=== PATIENT | male | born 1965 | race Caucasian/White ===

== ENCOUNTER 2019-09-07 10:44 | Inpatient (IN) | payer MEDICAID, OTHER ==
[~2019-09-07] VITALS: Ht 170.2 cm; Wt 66.0 kg
[2019-09-07] MEDS ORDERED: HYDROcodone/acetaminophen 10/325mg tab PO STA (10:47)
[2019-09-07] MEDS ORDERED: morphine 4 MG/ML inj SYRINge ONE (10:49)
[2019-09-07] MEDS ORDERED: morphine 4 MG/ML inj SYRINge IV ONE ×4 (10:50→12:10)
[2019-09-07] MEDS ORDERED: etomidate 2mg/ml inj. IV ONE (11:00)
[2019-09-07] MEDS ORDERED: normal saline 1000ml 1,000 ML IV SCH (11:03)
[2019-09-07] MEDS ORDERED: LORazepam 2 mg/ml vial IV ONE (11:15)
[2019-09-07] MEDS ORDERED: morphine 2 MG/ML inj. syringe IV ONE (11:15)
[2019-09-07] MEDS: normal saline 1000ml 1,000 ML IV SCH ×2 (12:19→22:33)
[2019-09-07] MEDS ORDERED: magnesium Cl slow-release 64mg tablet PO PRN (12:20)
[2019-09-07] MEDS ORDERED: HYDROcodone/acetaminophen 5mg/325mg tablet PO PRN (12:20)
[2019-09-07] MEDS ORDERED: magnesium 4gm in 100ml NS 100 ML IV PRN (12:20)
[2019-09-07] MEDS ORDERED: bisacodyl 10mg suppository rectal RC PRN (12:20)
[2019-09-07] MEDS ORDERED: acetaminophen 325mg tablet PO PRN (12:20)
[2019-09-07] MEDS ORDERED: potassium CL 10mEq/100ml bag 100 ML IV PRN ×2 (12:20)
[2019-09-07] MEDS ORDERED: potassium Cl 20 mEq SR tablet PO PRN (12:20)
[2019-09-07] MEDS ORDERED: HYDROmorphone inj. 0.5 MG/0.5 ML DISP.SYRIN IV PRN (12:20)
[2019-09-07] MEDS ORDERED: magnesium 2GM in 50ml NS 50 ML IV PRN (12:20)
[2019-09-07] MEDS ORDERED: acetaminophen 650mg rectal suppository RC PRN (12:20)
[2019-09-07 12:27] LABS: BASOPHILS # (AUTO) 0.1 X10'3 (0-0.2); BASOPHILS % (AUTO) 0.4 % (0-1); EOSINOPHILS # (AUTO) 0.1 X10'3 (0-0.9); EOSINOPHILS % (AUTO) 0.8 % (0-6); HEMATOCRIT 43.4 % (42.0-52.0); LYMPHOCYTES # (AUTO) 1.6 X10'3 (1.1-4.8); LYMPHOCYTES % (AUTO) 13.2 % (21-51); MEAN CORPUSCULAR HEMOGLOBIN 34.5 PG (27.0-31.0); MEAN CORPUSCULAR HGB CONC 34.6 g/dL (33.0-36.5); MEAN CORPUSCULAR VOLUME 99.7 FL (78-98); MEAN PLATELET VOLUME 9.5 FL (7.4-10.4); MONOCYTES # (AUTO) 0.6 X10'3 (0-0.9); MONOCYTES % (AUTO) 4.9 % (2-12); NEUTROPHILS # (AUTO) 9.6 X10'3 (1.8-7.7); NEUTROPHILS % (AUTO) 80.7 % (42-75); PLATELET COUNT 176 X10'3 (140-440); RED BLOOD COUNT 4.35 X10'6 (4.70-6.10); RED CELL DISTRIBUTION WIDTH 12.9 % (11.5-14.5); WHITE BLOOD COUNT 11.9 X10'3 (4.5-11.0)
--- NOTE | 2019-09-07 12:30 | NUR ---
FRIEND/BOSS/NEIGHBOR CJ NEO [phone] TOOK PATIENT'S ONE BOOT BELT GLASSES AND CLOTHES AND PILLOW HOME
--- NOTE | 2019-09-07 12:32 | NUR ---
AT 1050, 6MG MS ORDERED, ONLY 4MG GIVEN
[2019-09-07 12:35] LABS: ALANINE AMINOTRANSFERASE 56 U/L (12-78); ALBUMIN 3.9 G/DL (3.4-5.0); ALBUMIN/GLOBULIN RATIO 1.2 (1.1-1.5); ALKALINE PHOSPHATASE 80 IU/L (46-116); ANION GAP 8 (8-16); ASPARTATE AMINO TRANSFERASE 27 U/L (10-37); BLOOD UREA NITROGEN 14 MG/DL (7-18); BUN/CREATININE RATIO 12.4 (5.4-32.0); CALCIUM 8.7 MG/DL (8.5-10.1); CHLORIDE 103 MMOL/L (99-107); CREATININE 1.13 MG/DL (0.60-1.10); GLUCOSE 126 MG/DL (70-104); POTASSIUM 3.3 MMOL/L (3.5-5.1); SODIUM 137 MMOL/L (135-145); TOTAL CARBON DIOXIDE 26.4 MMOL/L (24-32); TOTAL PROTEIN 7.1 G/DL (6.4-8.2); eGFR 68 ML/MIN
[2019-09-07] MEDS: ondansetron/PF 4mg/2ml inj IV PRN ×2 (12:38→22:44)
[2019-09-07 13:56] LABS: CLARITY,URINE CLEAR (Clear); COLOR,URINE YELLOW (Yellow); GLUCOSE, URINE NEGATIVE (Neg); KETONES,URINE NEGATIVE (Neg); NITRITES, URINE NEGATIVE (Neg); OCCULT BLOOD,URINE NEGATIVE (Neg); PROTEIN,URINE NEGATIVE (Neg)
[2019-09-07 13:57] LABS: LEUKOCYTE ESTERASE ,URINE NEGATIVE (Neg); UROBILINOGEN,URINE 0.2 E.U/dL (0.2-1.0)
[2019-09-07 14:00] LABS: UA COLLECTION TYPE URINAL
[2019-09-07] MEDS ORDERED: ST JOHNS WORT PO (14:00)
[2019-09-07] MEDS ORDERED: OMEP-297 PO (14:00)
--- NOTE | 2019-09-07 14:01 | NUR ---
SECOND ATTEMPT AT CALLING SELWYN PEREZ
--- NOTE | 2019-09-07 14:03 | NUR ---
LAST KNOWN PO INTAKE WAS EGG ICH 729
--- NOTE | 2019-09-07 14:10 | NUR ---
Received report from MARÍA Streeter RN, patient coming up soon. Called OR to see if patient was to be an add on for tonight or if am surgery is planned instead.
--- NOTE | 2019-09-07 14:15 | NUR ---
DR FIERRO ADMITTING, DR KAELA DUGGAN, OTHRO CONSULT
[2019-09-07 14:25] VITALS: BP 109/79
--- NOTE | 2019-09-07 14:25 | NUR ---
Patient arrived to room 4022 B at this time. VSS.
[2019-09-07] MEDS: metoclopramide 5 mg/ml inj IV PRN (16:47)
[2019-09-07] MEDS: HYDROmorphone 1 mg/ml syringe IV PRN (16:51)
--- NOTE | 2019-09-07 17:15 | NUR ---
Paged hospitalist, "Roz [phone]- Please call re: [phone] Jeramy Torres."
[2019-09-07 18:00] VITALS: BP 112/65
--- NOTE | 2019-09-07 18:17 | NUR ---
Problems reprioritized. Patient report given, questions answered & plan of care reviewed with Terell PEREZ.
[2019-09-07] MEDS: K and/or MAG REPLACEMENT MC SCH (20:00)
[2019-09-07] MEDS: docusate sod 100mg capsule PO SCH (20:00)
[2019-09-07 22:00] VITALS: BP 146/82
[2019-09-07] MEDS: potassium Cl 20 mEq SR tablet PO PRN (22:33)
[2019-09-07] MEDS: HYDROcodone/acetaminophen 10/325mg tab PO PRN (22:34)
[2019-09-08] VITALS (17 sets, daily range): BP systolic 103–164; BP diastolic 65–99
[2019-09-08] MEDS: temazepam 15mg capsule PO PRN ×2 (01:16→21:44)
[2019-09-08] MEDS: potassium Cl 20 mEq SR tablet PO PRN ×2 (03:01→17:19)
[2019-09-08] MEDS: HYDROcodone/acetaminophen 10/325mg tab PO PRN ×3 (03:02→14:51)
--- NOTE | 2019-09-08 03:47 | NUR ---
Patient in room ORTHO 4022. I have received report from Roz PEREZ and had the opportunity to ask questions and assume patient care.
[2019-09-08] MEDS ORDERED: HYDROmorphone inj. 0.5 MG/0.5 ML DISP.SYRIN IV ONE (04:20)
[2019-09-08] MEDS: HYDROmorphone 1 mg/ml syringe IV PRN ×4 (05:22→21:23)
[2019-09-08 06:27] LABS: BASOPHILS % (AUTO) 0.2 % (0-1); EOSINOPHILS % (AUTO) 0.3 % (0-6); HEMATOCRIT 38.4 % (42.0-52.0); HEMOGLOBIN 13.4 g/dl (14.0-17.9); LYMPHOCYTES # (AUTO) 1.2 X10'3 (1.1-4.8); LYMPHOCYTES % (AUTO) 14.3 % (21-51); MEAN CORPUSCULAR HEMOGLOBIN 35.1 PG (27.0-31.0); MEAN CORPUSCULAR HGB CONC 34.9 g/dL (33.0-36.5); MEAN CORPUSCULAR VOLUME 100.4 FL (78-98); MEAN PLATELET VOLUME 9.4 FL (7.4-10.4); MONOCYTES # (AUTO) 0.7 X10'3 (0-0.9); MONOCYTES % (AUTO) 7.8 % (2-12); NEUTROPHILS # (AUTO) 6.7 X10'3 (1.8-7.7); NEUTROPHILS % (AUTO) 77.4 % (42-75); PLATELET COUNT 136 X10'3 (140-440); RED BLOOD COUNT 3.82 X10'6 (4.70-6.10); WHITE BLOOD COUNT 8.6 X10'3 (4.5-11.0)
[2019-09-08 06:50] LABS: ALANINE AMINOTRANSFERASE 44 U/L (12-78); ALBUMIN 3.5 G/DL (3.4-5.0); ALBUMIN/GLOBULIN RATIO 1.2 (1.1-1.5); ALKALINE PHOSPHATASE 81 IU/L (46-116); ANION GAP 7 (8-16); ASPARTATE AMINO TRANSFERASE 23 U/L (10-37); BILIRUBIN,TOTAL 1.3 MG/DL (0.1-1.0); BLOOD UREA NITROGEN 14 MG/DL (7-18); BUN/CREATININE RATIO 14.1 (5.4-32.0); CALCIUM 8.2 MG/DL (8.5-10.1); CHLORIDE 104 MMOL/L (99-107); CREATININE 0.99 MG/DL (0.60-1.10); GLUCOSE 116 MG/DL (70-104); MAGNESIUM 1.9 MG/DL (1.5-2.4); POTASSIUM 3.4 MMOL/L (3.5-5.1); SODIUM 139 MMOL/L (135-145); TOTAL PROTEIN 6.5 G/DL (6.4-8.2); eGFR 79 ML/MIN
[2019-09-08] MEDS: pantoprazole 40mg Tablet.DR PO SCH (07:13)
[2019-09-08] MEDS: enoxaparin 40mg/0.4ml syringe SUBCUT SCH (08:00)
[2019-09-08] MEDS: K and/or MAG REPLACEMENT MC SCH ×2 (08:00→20:00)
[2019-09-08] MEDS: docusate sod 100mg capsule PO SCH ×2 (08:00→19:41)
[2019-09-08] MEDS ORDERED: fentaNYL/PF 50MCG/1 ML 2ML syringe ONE (08:04)
[2019-09-08] MEDS ORDERED: MIDAZolam 1mg/ml 10ml vial ONE (08:04)
[2019-09-08] MEDS ORDERED: ceFAZolin 1000mg inj ONE ×2 (08:55)
[2019-09-08] MEDS ORDERED: dexamethasone sod phosphate 4mg/ml inj. ONE (09:10)
[2019-09-08] MEDS ORDERED: ringers solution, lacted 1,000 ML IV SCH (09:12)
[2019-09-08] MEDS ORDERED: ondansetron/PF 4mg/2ml inj IV PRN (09:15)
[2019-09-08] MEDS ORDERED: meperidine/PF 25mg/ml syringe IV PRN ×3 (09:15)
[2019-09-08] MEDS ORDERED: morphine 4 MG/ML inj SYRINge IV PRN ×2 (09:15)
[2019-09-08] MEDS ORDERED: proCHLORperazine 10 MG/2 ml inj IV PRN (09:15)
--- NOTE | 2019-09-08 09:15 | NUR ---
ADMITTED TO PACU FROM OR ACCOMPANIED BY ANESTHESIA. INTIAL PHYSICAL ASSESSMENT DONE AND RECORDED. REPORT RECEIVED FROM ANESTHESIA.
--- NOTE | 2019-09-08 10:01 | NUR ---
Patient in room ORTHO 4022B. I have received report from BELEN BURGER RN, PT SANDRA, A&O, and had the opportunity to ask questions and assume patient care.
--- NOTE | 2019-09-08 10:10 | NUR ---
PACU DISCHARGE CRITERIA MET, REPORT GIVEN TO FLOOR. DENIES PAIN OR DISCOMFORT, TRANSFERRED TO ROOM IN STABLE GOOD CONDITION.
[2019-09-08] MEDS: mag hydrox/Alum hydrox/simeth 30ml oral suspension PO PRN ×2 (11:27→23:40)
[2019-09-08] MEDS: normal saline 1000ml 1,000 ML IV SCH ×3 (11:29→23:41)
[2019-09-08] MEDS: ondansetron/PF 4mg/2ml inj IV PRN (14:05)
[2019-09-08] MEDS: metoclopramide 5 mg/ml inj IV PRN (17:12)
[2019-09-08] MEDS: cefazolin/dext.iso 2gm/100ml 100 ML IV SCH ×2 (17:29→23:41)
--- NOTE | 2019-09-08 18:10 | NUR ---
Patient in room ORTHO 4022. I have received report from ANA Alvarado and had the opportunity to ask questions and assume patient care.
[2019-09-08] MEDS: diphenhydrAMINE 25mg capsule PO PRN (19:31)
[2019-09-08] MEDS ORDERED: ketorolac trometh. 30mg/ml inj. IV SCH (20:00)
[2019-09-09 01:50] VITALS: BP 130/76
[2019-09-09] MEDS: potassium Cl 20 mEq SR tablet PO PRN (03:28)
[2019-09-09] MEDS: HYDROmorphone 1 mg/ml syringe IV PRN ×5 (03:30→21:57)
[2019-09-09 05:50] VITALS: BP 122/80
--- NOTE | 2019-09-09 06:30 | NUR ---
Patient in room ORTHO 4022. I have received report from Katlyn PEREZ and had the opportunity to ask questions and assume patient care.
[2019-09-09 06:33] LABS: ALANINE AMINOTRANSFERASE 36 U/L (12-78); ALBUMIN 3.5 G/DL (3.4-5.0); ALKALINE PHOSPHATASE 72 IU/L (46-116); ANION GAP 6 (8-16); ASPARTATE AMINO TRANSFERASE 29 U/L (10-37); BILIRUBIN,TOTAL 1.1 MG/DL (0.1-1.0); BLOOD UREA NITROGEN 11 MG/DL (7-18); BUN/CREATININE RATIO 10.4 (5.4-32.0); CALCIUM 8.7 MG/DL (8.5-10.1); CHLORIDE 105 MMOL/L (99-107); CREATININE 1.06 MG/DL (0.60-1.10); GLUCOSE 124 MG/DL (70-104); MAGNESIUM 2.3 MG/DL (1.5-2.4); POTASSIUM 4.1 MMOL/L (3.5-5.1); SODIUM 140 MMOL/L (135-145); TOTAL CARBON DIOXIDE 28.9 MMOL/L (24-32); TOTAL PROTEIN 6.9 G/DL (6.4-8.2); eGFR 73 ML/MIN
[2019-09-09 06:35] LABS: BASOPHILS % (AUTO) 0.1 % (0-1); EOSINOPHILS % (AUTO) 0.2 % (0-6); HEMATOCRIT 36.4 % (42.0-52.0); HEMOGLOBIN 12.7 g/dl (14.0-17.9); LYMPHOCYTES % (AUTO) 9.1 % (21-51); MEAN CORPUSCULAR HEMOGLOBIN 35.3 PG (27.0-31.0); MEAN CORPUSCULAR HGB CONC 34.9 g/dL (33.0-36.5); MEAN CORPUSCULAR VOLUME 101.2 FL (78-98); MEAN PLATELET VOLUME 9.7 FL (7.4-10.4); MONOCYTES # (AUTO) 0.7 X10'3 (0-0.9); MONOCYTES % (AUTO) 6.8 % (2-12); NEUTROPHILS # (AUTO) 8.8 X10'3 (1.8-7.7); NEUTROPHILS % (AUTO) 83.8 % (42-75); PLATELET COUNT 133 X10'3 (140-440); RED BLOOD COUNT 3.59 X10'6 (4.70-6.10); RED CELL DISTRIBUTION WIDTH 13.1 % (11.5-14.5); WHITE BLOOD COUNT 10.5 X10'3 (4.5-11.0)
--- NOTE | 2019-09-09 06:52 | NUR ---
Problems reprioritized. Patient report given, questions answered & plan of care reviewed with ANA Arango.
[2019-09-09] MEDS: K and/or MAG REPLACEMENT MC SCH ×2 (08:00→20:00)
[2019-09-09] MEDS: ketorolac trometh. 30mg/ml inj. IV PRN ×2 (08:06→15:43)
[2019-09-09] MEDS: docusate sod 100mg capsule PO SCH ×2 (08:06→22:06)
[2019-09-09] MEDS: pantoprazole 40mg Tablet.DR PO SCH (08:06)
[2019-09-09] MEDS: enoxaparin 40mg/0.4ml syringe SUBCUT SCH (08:07)
[2019-09-09] MEDS ORDERED: normal saline 1000ml 1,000 ML IV SCH ×2 (09:00→16:55)
[2019-09-09] MEDS: diphenhydrAMINE 25mg capsule PO PRN ×3 (09:16→23:20)
[2019-09-09] MEDS: ondansetron/PF 4mg/2ml inj IV PRN ×2 (09:16→15:56)
[2019-09-09 09:50] VITALS: BP 126/77
[2019-09-09] MEDS: HYDROcodone/acetaminophen 10/325mg tab PO PRN ×3 (11:05→17:44)
[2019-09-09 13:50] VITALS: BP 136/82
[2019-09-09 18:00] VITALS: BP 162/85
--- NOTE | 2019-09-09 18:30 | NUR ---
Problems reprioritized. Patient report given, questions answered & plan of care reviewed with Tori PEREZ.
[2019-09-09 22:00] VITALS: BP 150/70
--- NOTE | 2019-09-09 22:51 | NUR ---
RT LOWER EXTERNAL FIXATOR SITE DRAINING SANGUINOUS DRAINAGE,MARKED.INFORMED DR. DUGGAN PT ON TORADOL,ADVISED TO CONTINUE TORADOL.
[2019-09-10] MEDS: HYDROcodone/acetaminophen 10/325mg tab PO PRN ×2 (01:17→08:08)
[2019-09-10] MEDS: ketorolac trometh. 30mg/ml inj. IV PRN ×2 (02:34→09:26)
[2019-09-10] MEDS: HYDROmorphone 1 mg/ml syringe IV PRN ×4 (04:46→22:32)
[2019-09-10 05:57] LABS: BASOPHILS # (AUTO) 0.1 X10'3 (0-0.2); BASOPHILS % (AUTO) 0.7 % (0-1); EOSINOPHILS # (AUTO) 0.1 X10'3 (0-0.9); EOSINOPHILS % (AUTO) 1.9 % (0-6); HEMATOCRIT 36.4 % (42.0-52.0); HEMOGLOBIN 12.7 g/dl (14.0-17.9); LYMPHOCYTES # (AUTO) 1.4 X10'3 (1.1-4.8); LYMPHOCYTES % (AUTO) 19.4 % (21-51); MEAN CORPUSCULAR HEMOGLOBIN 35.3 PG (27.0-31.0); MEAN CORPUSCULAR HGB CONC 34.8 g/dL (33.0-36.5); MEAN CORPUSCULAR VOLUME 101.4 FL (78-98); MEAN PLATELET VOLUME 9.2 FL (7.4-10.4); MONOCYTES # (AUTO) 0.5 X10'3 (0-0.9); MONOCYTES % (AUTO) 7.4 % (2-12); NEUTROPHILS # (AUTO) 5.2 X10'3 (1.8-7.7); NEUTROPHILS % (AUTO) 70.6 % (42-75); PLATELET COUNT 128 X10'3 (140-440); RED BLOOD COUNT 3.59 X10'6 (4.70-6.10); RED CELL DISTRIBUTION WIDTH 12.9 % (11.5-14.5); WHITE BLOOD COUNT 7.4 X10'3 (4.5-11.0)
[2019-09-10 06:00] VITALS: BP 169/83
[2019-09-10 06:23] LABS: ALANINE AMINOTRANSFERASE 41 U/L (12-78); ALBUMIN 3.3 G/DL (3.4-5.0); ALBUMIN/GLOBULIN RATIO 0.9 (1.1-1.5); ALKALINE PHOSPHATASE 72 IU/L (46-116); ANION GAP 9 (8-16); ASPARTATE AMINO TRANSFERASE 44 U/L (10-37); BILIRUBIN,TOTAL 1.4 MG/DL (0.1-1.0); BLOOD UREA NITROGEN 15 MG/DL (7-18); BUN/CREATININE RATIO 13.8 (5.4-32.0); CALCIUM 8.6 MG/DL (8.5-10.1); CHLORIDE 103 MMOL/L (99-107); CREATININE 1.09 MG/DL (0.60-1.10); GLUCOSE 97 MG/DL (70-104); POTASSIUM 3.8 MMOL/L (3.5-5.1); SODIUM 139 MMOL/L (135-145); TOTAL PROTEIN 6.9 G/DL (6.4-8.2); eGFR 71 ML/MIN
[2019-09-10] MEDS: K and/or MAG REPLACEMENT MC SCH ×2 (07:09→20:00)
[2019-09-10] MEDS: docusate sod 100mg capsule PO SCH ×2 (08:08→19:49)
[2019-09-10] MEDS: pantoprazole 40mg Tablet.DR PO SCH (08:08)
[2019-09-10] MEDS: enoxaparin 40mg/0.4ml syringe SUBCUT SCH (08:10)
[2019-09-10 10:00] VITALS: BP 148/71
[2019-09-10] MEDS: ondansetron/PF 4mg/2ml inj IV PRN (11:34)
[2019-09-10] MEDS ORDERED: HYDROcodone/acetaminophen 10/325mg tab PO PRN (11:40)
[2019-09-10] MEDS: metoclopramide 5 mg/ml inj IV PRN (14:05)
[2019-09-10] MEDS ORDERED: oxyCODONE/APAP 10/325mg tablet PO PRN (17:25)
[2019-09-10] MEDS: oxyCODONE/APAP 10/325mg tablet PO PRN ×2 (17:42→18:38)
[2019-09-10 18:00] VITALS: BP 171/78
--- NOTE | 2019-09-10 18:00 | NUR ---
Patient in room ORTHO 4022. I have received report from Vickie PEREZ and had the opportunity to ask questions and assume patient care.
--- NOTE | 2019-09-10 18:20 | NUR ---
Received patient report from ANA Adams. Assumed patient care.
[2019-09-10] MEDS: diphenhydrAMINE 25mg capsule PO PRN (18:37)
[2019-09-10 22:00] VITALS: BP 136/53
[2019-09-11] MEDS: metoclopramide 5 mg/ml inj IV PRN (02:55)
[2019-09-11 05:58] LABS: ALANINE AMINOTRANSFERASE 64 U/L (12-78); ALBUMIN 3.4 G/DL (3.4-5.0); ALBUMIN/GLOBULIN RATIO 0.9 (1.1-1.5); ALKALINE PHOSPHATASE 95 IU/L (46-116); ANION GAP 4 (8-16); ASPARTATE AMINO TRANSFERASE 56 U/L (10-37); BILIRUBIN,TOTAL 1.3 MG/DL (0.1-1.0); BLOOD UREA NITROGEN 15 MG/DL (7-18); BUN/CREATININE RATIO 13.3 (5.4-32.0); CALCIUM 8.7 MG/DL (8.5-10.1); CHLORIDE 102 MMOL/L (99-107); CREATININE 1.13 MG/DL (0.60-1.10); GLUCOSE 118 MG/DL (70-104); MAGNESIUM 2.1 MG/DL (1.5-2.4); POTASSIUM 3.4 MMOL/L (3.5-5.1); SODIUM 138 MMOL/L (135-145); TOTAL CARBON DIOXIDE 31.6 MMOL/L (24-32); TOTAL PROTEIN 7.1 G/DL (6.4-8.2); eGFR 68 ML/MIN
[2019-09-11 06:00] VITALS: BP 143/94
[2019-09-11] MEDS: ketorolac trometh. 30mg/ml inj. IV PRN (06:10)
[2019-09-11] MEDS: HYDROmorphone 1 mg/ml syringe IV PRN (06:10)
[2019-09-11 06:11] LABS: BASOPHILS % (AUTO) 0.7 % (0-1); EOSINOPHILS # (AUTO) 0.2 X10'3 (0-0.9); EOSINOPHILS % (AUTO) 2.5 % (0-6); HEMATOCRIT 36.6 % (42.0-52.0); HEMOGLOBIN 12.8 g/dl (14.0-17.9); LYMPHOCYTES # (AUTO) 0.9 X10'3 (1.1-4.8); LYMPHOCYTES % (AUTO) 14.7 % (21-51); MEAN CORPUSCULAR VOLUME 100.1 FL (78-98); MEAN PLATELET VOLUME 9.2 FL (7.4-10.4); MONOCYTES # (AUTO) 0.4 X10'3 (0-0.9); MONOCYTES % (AUTO) 6.8 % (2-12); NEUTROPHILS # (AUTO) 4.8 X10'3 (1.8-7.7); NEUTROPHILS % (AUTO) 75.3 % (42-75); PLATELET COUNT 165 X10'3 (140-440); RED BLOOD COUNT 3.66 X10'6 (4.70-6.10); RED CELL DISTRIBUTION WIDTH 12.8 % (11.5-14.5); WHITE BLOOD COUNT 6.3 X10'3 (4.5-11.0)
--- NOTE | 2019-09-11 06:30 | NUR ---
Patient in room ORTHO 4022. I have received report from ANA George and had the opportunity to ask questions and assume patient care.
--- NOTE | 2019-09-11 06:48 | NUR ---
Problems reprioritized. Patient report given, questions answered & plan of care reviewed with Angie PEREZ.
[2019-09-11] MEDS ORDERED: potassium CL 10mEq/100ml bag 100 ML IV PRN (07:10)
[2019-09-11] MEDS ORDERED: potassium Cl 20 mEq SR tablet PO PRN (07:10)
[2019-09-11] MEDS ORDERED: magnesium Cl slow-release 64mg tablet PO PRN (07:10)
[2019-09-11] MEDS ORDERED: magnesium 4gm in 100ml NS 100 ML IV PRN (07:10)
[2019-09-11] MEDS: K and/or MAG REPLACEMENT MC SCH ×3 (08:00→19:24)
[2019-09-11] MEDS: ondansetron/PF 4mg/2ml inj IV PRN ×3 (08:24→20:03)
[2019-09-11] MEDS: pantoprazole 40mg Tablet.DR PO SCH (08:24)
[2019-09-11] MEDS: docusate sod 100mg capsule PO SCH ×2 (08:24→19:42)
[2019-09-11] MEDS: enoxaparin 40mg/0.4ml syringe SUBCUT SCH (08:25)
[2019-09-11] MEDS: potassium Cl 20 mEq SR tablet PO PRN ×3 (08:25→18:50)
[2019-09-11] MEDS: magnesium hydroxide 30ml (MOM) UD suspension PO PRN (09:47)
[2019-09-11 10:00] VITALS: BP 174/57
[2019-09-11] MEDS: diphenhydrAMINE 25mg capsule PO PRN ×2 (10:18→19:42)
[2019-09-11] MEDS: oxyCODONE/APAP 10/325mg tablet PO PRN ×4 (10:19→20:02)
[2019-09-11 18:00] VITALS: BP 147/72
--- NOTE | 2019-09-11 18:12 | NUR ---
Problems reprioritized. Patient report given, questions answered & plan of care reviewed with ANA Gurrola.
[2019-09-11 22:00] VITALS: BP 177/86
--- NOTE | 2019-09-12 05:52 | NUR ---
Pt was adamant he did not want to be woke up for 0600 vitals. Pt understood to use call light for any other needs.
--- NOTE | 2019-09-12 05:58 | NUR ---
Patient report given, questions answered and plan of care reviewed with ANA Guerra.
--- NOTE | 2019-09-12 06:00 | NUR ---
Patient refused 0600 vital signs.
[2019-09-12] MEDS: ondansetron/PF 4mg/2ml inj IV PRN ×2 (06:38→15:25)
[2019-09-12] MEDS: oxyCODONE/APAP 10/325mg tablet PO PRN ×2 (06:38→10:18)
[2019-09-12] MEDS: docusate sod 100mg capsule PO SCH ×2 (07:52→20:41)
[2019-09-12] MEDS: pantoprazole 40mg Tablet.DR PO SCH (07:52)
[2019-09-12] MEDS: enoxaparin 40mg/0.4ml syringe SUBCUT SCH (07:53)
[2019-09-12] MEDS ORDERED: hydrALAZINE 20mg/ml inj. IV PRN (07:55)
[2019-09-12] MEDS: K and/or MAG REPLACEMENT MC SCH ×3 (07:55→20:00)
[2019-09-12 08:37] LABS: BASOPHILS % (AUTO) 0.6 % (0-1); EOSINOPHILS # (AUTO) 0.1 X10'3 (0-0.9); EOSINOPHILS % (AUTO) 2.5 % (0-6); HEMATOCRIT 36.6 % (42.0-52.0); HEMOGLOBIN 12.9 g/dl (14.0-17.9); LYMPHOCYTES # (AUTO) 0.6 X10'3 (1.1-4.8); LYMPHOCYTES % (AUTO) 11.9 % (21-51); MEAN CORPUSCULAR HEMOGLOBIN 35.2 PG (27.0-31.0); MEAN CORPUSCULAR HGB CONC 35.2 g/dL (33.0-36.5); MEAN CORPUSCULAR VOLUME 99.7 FL (78-98); MEAN PLATELET VOLUME 8.8 FL (7.4-10.4); MONOCYTES # (AUTO) 0.3 X10'3 (0-0.9); MONOCYTES % (AUTO) 5.8 % (2-12); NEUTROPHILS # (AUTO) 3.7 X10'3 (1.8-7.7); NEUTROPHILS % (AUTO) 79.2 % (42-75); PLATELET COUNT 177 X10'3 (140-440); RED BLOOD COUNT 3.67 X10'6 (4.70-6.10); RED CELL DISTRIBUTION WIDTH 12.7 % (11.5-14.5); WHITE BLOOD COUNT 4.7 X10'3 (4.5-11.0)
[2019-09-12 08:53] LABS: ALANINE AMINOTRANSFERASE 132 U/L (12-78); ALBUMIN 3.5 G/DL (3.4-5.0); ALKALINE PHOSPHATASE 126 IU/L (46-116); ANION GAP 6 (8-16); ASPARTATE AMINO TRANSFERASE 125 U/L (10-37); BILIRUBIN,TOTAL 1.4 MG/DL (0.1-1.0); BLOOD UREA NITROGEN 12 MG/DL (7-18); CALCIUM 9.1 MG/DL (8.5-10.1); CHLORIDE 102 MMOL/L (99-107); GLUCOSE 135 MG/DL (70-104); MAGNESIUM 2.2 MG/DL (1.5-2.4); POTASSIUM 3.6 MMOL/L (3.5-5.1); SODIUM 138 MMOL/L (135-145); TOTAL CARBON DIOXIDE 30.4 MMOL/L (24-32); TOTAL PROTEIN 7.1 G/DL (6.4-8.2); eGFR 64 ML/MIN
[2019-09-12 10:00] VITALS: BP 137/63
[2019-09-12] MEDS: oxyCODONE IR 5mg (immed. release) tablet PO PRN ×3 (15:28→23:57)
[2019-09-12 18:00] VITALS: BP 135/90
--- NOTE | 2019-09-12 18:16 | NUR ---
Problems reprioritized. Patient report given, questions answered & plan of care reviewed with Clarissa PEREZ.
--- NOTE | 2019-09-12 18:31 | NUR ---
Patient in room ORTHO 4022. I have received report from ANA Guerra and had the opportunity to ask questions and assume patient care. Addendum: 09/12/19 at 1832 by Lizzie Smith RN Amended: Links added.
[2019-09-12] MEDS: metoclopramide 5 mg/ml inj IV PRN (19:33)
[2019-09-12] MEDS: morphine ER 15mg tablet PO SCH (20:41)
[2019-09-12 22:00] VITALS: BP 118/84
--- NOTE | 2019-09-12 23:47 | NUR ---
Problems reprioritized. Patient report given, questions answered & plan of care reviewed with ANA Soni. Addendum: 09/12/19 at 2347 by Lizzie Smith RN Amended: Links added.
[2019-09-12] MEDS: temazepam 15mg capsule PO PRN (23:57)
[2019-09-13] MEDS: oxyCODONE IR 5mg (immed. release) tablet PO PRN ×3 (05:35→13:15)
[2019-09-13] MEDS: metoclopramide 5 mg/ml inj IV PRN ×2 (05:36→13:16)
[2019-09-13 06:00] VITALS: BP 142/81
--- NOTE | 2019-09-13 06:25 | NUR ---
REPORT GIVEN TO ANA LOONEY.
--- NOTE | 2019-09-13 06:30 | NUR ---
RECEIVED REPORT FROM ANA RODRIGUEZ
[2019-09-13 06:31] LABS: BASOPHILS % (AUTO) 0.5 % (0-1); EOSINOPHILS # (AUTO) 0.2 X10'3 (0-0.9); EOSINOPHILS % (AUTO) 3.2 % (0-6); HEMATOCRIT 37.4 % (42.0-52.0); LYMPHOCYTES # (AUTO) 1.3 X10'3 (1.1-4.8); LYMPHOCYTES % (AUTO) 19.2 % (21-51); MEAN CORPUSCULAR HEMOGLOBIN 35.1 PG (27.0-31.0); MEAN CORPUSCULAR HGB CONC 34.9 g/dL (33.0-36.5); MEAN CORPUSCULAR VOLUME 100.5 FL (78-98); MEAN PLATELET VOLUME 8.3 FL (7.4-10.4); MONOCYTES # (AUTO) 0.7 X10'3 (0-0.9); MONOCYTES % (AUTO) 10.8 % (2-12); NEUTROPHILS # (AUTO) 4.5 X10'3 (1.8-7.7); NEUTROPHILS % (AUTO) 66.3 % (42-75); PLATELET COUNT 194 X10'3 (140-440); RED BLOOD COUNT 3.72 X10'6 (4.70-6.10); RED CELL DISTRIBUTION WIDTH 12.5 % (11.5-14.5); WHITE BLOOD COUNT 6.8 X10'3 (4.5-11.0)
[2019-09-13 06:56] LABS: ALANINE AMINOTRANSFERASE 190 U/L (12-78); ALBUMIN 3.5 G/DL (3.4-5.0); ALBUMIN/GLOBULIN RATIO 0.9 (1.1-1.5); ALKALINE PHOSPHATASE 150 IU/L (46-116); ANION GAP 7 (8-16); ASPARTATE AMINO TRANSFERASE 161 U/L (10-37); BILIRUBIN,TOTAL 1.4 MG/DL (0.1-1.0); BLOOD UREA NITROGEN 16 MG/DL (7-18); BUN/CREATININE RATIO 12.9 (5.4-32.0); CALCIUM 9.2 MG/DL (8.5-10.1); CHLORIDE 101 MMOL/L (99-107); CREATININE 1.24 MG/DL (0.60-1.10); GLUCOSE 107 MG/DL (70-104); MAGNESIUM 2.2 MG/DL (1.5-2.4); POTASSIUM 4.1 MMOL/L (3.5-5.1); SODIUM 138 MMOL/L (135-145); TOTAL CARBON DIOXIDE 30.5 MMOL/L (24-32); TOTAL PROTEIN 7.4 G/DL (6.4-8.2); eGFR 61 ML/MIN
[2019-09-13] MEDS: K and/or MAG REPLACEMENT MC SCH ×2 (07:38→20:00)
[2019-09-13] MEDS: pantoprazole 40mg Tablet.DR PO SCH (07:42)
[2019-09-13] MEDS: morphine ER 15mg tablet PO SCH ×2 (07:42→20:08)
[2019-09-13] MEDS: docusate sod 100mg capsule PO SCH ×2 (07:42→20:08)
[2019-09-13] MEDS: enoxaparin 40mg/0.4ml syringe SUBCUT SCH (07:43)
[2019-09-13 10:00] VITALS: BP 141/83
--- NOTE | 2019-09-13 14:25 | NUR ---
Initial: Pt admit s/p R tib/fib fx repair. Pt PO fluctuates roughly 50% avg regular diet not meeting healing needs. Pt seen by RD for written/verbal high protein diet ed w/ RD contact information provided. LBM 09/11. Pt reports currently nausea post-op and also kosher meals only w/ no caffeine. Dietary notified of pt preferences. Pt declines high protein food options and ensures w/ meals; reports drinks orgain protein at home. RD encouraged pt to bring in from outside in order to meet healing needs. Will continue to monitor. Rec: 1. continue regular diet 2. honor pt food preferences 3. bowel care as needed 4. wt per rx Addendum: 09/13/19 at [address] Amended: Links added.
[2019-09-13 18:00] VITALS: BP 131/79
--- NOTE | 2019-09-13 18:18 | NUR ---
gave report to ray clark
[2019-09-13] MEDS: ondansetron/PF 4mg/2ml inj IV PRN (19:13)
[2019-09-13] MEDS: acetaminophen 325mg tablet PO PRN (19:18)
[2019-09-13 22:00] VITALS: BP 164/78
[2019-09-14] MEDS: temazepam 15mg capsule PO PRN ×2 (01:28→22:58)
[2019-09-14] MEDS: acetaminophen 325mg tablet PO PRN ×2 (01:29→07:11)
[2019-09-14] MEDS: magnesium hydroxide 30ml (MOM) UD suspension PO PRN (05:28)
--- NOTE | 2019-09-14 06:08 | NUR ---
Problems reprioritized. Patient report given, questions answered & plan of care reviewed with ANA Bourne.
[2019-09-14 06:10] VITALS: BP 148/58
[2019-09-14 06:21] LABS: BASOPHILS % (AUTO) 0.7 % (0-1); EOSINOPHILS # (AUTO) 0.2 X10'3 (0-0.9); EOSINOPHILS % (AUTO) 3.6 % (0-6); HEMATOCRIT 38.6 % (42.0-52.0); HEMOGLOBIN 13.2 g/dl (14.0-17.9); LYMPHOCYTES # (AUTO) 1.2 X10'3 (1.1-4.8); LYMPHOCYTES % (AUTO) 19.2 % (21-51); MEAN CORPUSCULAR HGB CONC 34.3 g/dL (33.0-36.5); MEAN CORPUSCULAR VOLUME 99.3 FL (78-98); MEAN PLATELET VOLUME 8.3 FL (7.4-10.4); MONOCYTES # (AUTO) 0.7 X10'3 (0-0.9); MONOCYTES % (AUTO) 10.4 % (2-12); NEUTROPHILS # (AUTO) 4.2 X10'3 (1.8-7.7); NEUTROPHILS % (AUTO) 66.1 % (42-75); PLATELET COUNT 209 X10'3 (140-440); RED BLOOD COUNT 3.89 X10'6 (4.70-6.10); RED CELL DISTRIBUTION WIDTH 12.8 % (11.5-14.5); WHITE BLOOD COUNT 6.3 X10'3 (4.5-11.0)
[2019-09-14 06:39] LABS: ALANINE AMINOTRANSFERASE 219 U/L (12-78); ALBUMIN 3.3 G/DL (3.4-5.0); ALBUMIN/GLOBULIN RATIO 0.8 (1.1-1.5); ALKALINE PHOSPHATASE 158 IU/L (46-116); ANION GAP 4 (8-16); ASPARTATE AMINO TRANSFERASE 152 U/L (10-37); BILIRUBIN,TOTAL 1.4 MG/DL (0.1-1.0); BLOOD UREA NITROGEN 16 MG/DL (7-18); BUN/CREATININE RATIO 13.2 (5.4-32.0); CALCIUM 9.2 MG/DL (8.5-10.1); CHLORIDE 101 MMOL/L (99-107); CREATININE 1.21 MG/DL (0.60-1.10); GLUCOSE 105 MG/DL (70-104); MAGNESIUM 2.2 MG/DL (1.5-2.4); POTASSIUM 3.9 MMOL/L (3.5-5.1); SODIUM 137 MMOL/L (135-145); TOTAL CARBON DIOXIDE 31.9 MMOL/L (24-32); TOTAL PROTEIN 7.4 G/DL (6.4-8.2); eGFR 63 ML/MIN
[2019-09-14] MEDS: morphine ER 15mg tablet PO SCH ×2 (07:11→19:59)
[2019-09-14] MEDS: pantoprazole 40mg Tablet.DR PO SCH (07:53)
[2019-09-14] MEDS: docusate sod 100mg capsule PO SCH ×2 (07:53→19:58)
[2019-09-14] MEDS: enoxaparin 40mg/0.4ml syringe SUBCUT SCH (07:53)
[2019-09-14] MEDS: K and/or MAG REPLACEMENT MC SCH ×2 (08:00→20:00)
[2019-09-14] MEDS ORDERED: traMADol 50MG tablet PO PRN ×2 (09:30→11:50)
[2019-09-14 10:00] VITALS: BP 140/87
[2019-09-14] MEDS ORDERED: oxyCODONE IR 5mg (immed. release) tablet PO PRN ×2 (11:15→13:10)
[2019-09-14] MEDS ORDERED: diazepam 5mg tablet PO ONE (11:35)
[2019-09-14] MEDS: ondansetron 4mg rapidly disintigrating tab PO PRN ×2 (13:24→22:01)
[2019-09-14] MEDS ORDERED: morphine ER 15mg tablet PO ONE (14:55)
[2019-09-14] MEDS: oxyCODONE IR 5mg (immed. release) tablet PO PRN ×2 (17:07→22:05)
[2019-09-14 18:00] VITALS: BP 149/79
--- NOTE | 2019-09-14 18:26 | NUR ---
Problems reprioritized. Patient report given, questions answered & plan of care reviewed with Minda PEREZ.
--- NOTE | 2019-09-14 18:27 | NUR ---
Problems reprioritized. Patient report given, questions answered & plan of care reviewed with Christianne PEREZ.
--- NOTE | 2019-09-14 19:23 | NUR ---
RECEIVED REPORT FROM TRIPP PEREZ AND ASSUMED PATIENT CARE
[2019-09-14] MEDS: sennosides 8.6mg tablet PO SCH (19:58)
[2019-09-14 22:00] VITALS: BP 144/77
[2019-09-15] MEDS: ondansetron 4mg rapidly disintigrating tab PO PRN (04:40)
[2019-09-15] MEDS: oxyCODONE IR 5mg (immed. release) tablet PO PRN ×3 (04:40→12:27)
[2019-09-15 06:10] VITALS: BP 140/71
[2019-09-15 06:14] LABS: BASOPHILS # (AUTO) 0.1 X10'3 (0-0.2); BASOPHILS % (AUTO) 0.8 % (0-1); EOSINOPHILS # (AUTO) 0.3 X10'3 (0-0.9); HEMATOCRIT 35.5 % (42.0-52.0); HEMOGLOBIN 12.6 g/dl (14.0-17.9); LYMPHOCYTES # (AUTO) 1.4 X10'3 (1.1-4.8); LYMPHOCYTES % (AUTO) 20.7 % (21-51); MEAN CORPUSCULAR HEMOGLOBIN 34.9 PG (27.0-31.0); MEAN CORPUSCULAR HGB CONC 35.4 g/dL (33.0-36.5); MEAN CORPUSCULAR VOLUME 98.6 FL (78-98); MEAN PLATELET VOLUME 8.1 FL (7.4-10.4); MONOCYTES # (AUTO) 0.8 X10'3 (0-0.9); MONOCYTES % (AUTO) 11.5 % (2-12); NEUTROPHILS # (AUTO) 4.1 X10'3 (1.8-7.7); PLATELET COUNT 219 X10'3 (140-440); RED CELL DISTRIBUTION WIDTH 12.6 % (11.5-14.5); WHITE BLOOD COUNT 6.6 X10'3 (4.5-11.0)
[2019-09-15 06:26] LABS: ALANINE AMINOTRANSFERASE 209 U/L (12-78); ALBUMIN 3.2 G/DL (3.4-5.0); ALBUMIN/GLOBULIN RATIO 0.8 (1.1-1.5); ALKALINE PHOSPHATASE 163 IU/L (46-116); ANION GAP 6 (8-16); ASPARTATE AMINO TRANSFERASE 102 U/L (10-37); BLOOD UREA NITROGEN 18 MG/DL (7-18); BUN/CREATININE RATIO 14.9 (5.4-32.0); CALCIUM 9.2 MG/DL (8.5-10.1); CHLORIDE 99 MMOL/L (99-107); CREATININE 1.21 MG/DL (0.60-1.10); GLUCOSE 105 MG/DL (70-104); POTASSIUM 4.2 MMOL/L (3.5-5.1); SODIUM 136 MMOL/L (135-145); TOTAL CARBON DIOXIDE 31.5 MMOL/L (24-32); TOTAL PROTEIN 7.1 G/DL (6.4-8.2); eGFR 63 ML/MIN
--- NOTE | 2019-09-15 06:28 | NUR ---
REPORT GIVEN TO TRIPP PEREZ
--- NOTE | 2019-09-15 06:32 | NUR ---
Patient in room ORTHO 4022. I have received report from Christianne PEREZ and had the opportunity to ask questions and assume patient care.
[2019-09-15] MEDS: pantoprazole 40mg Tablet.DR PO SCH (07:40)
[2019-09-15] MEDS: sennosides 8.6mg tablet PO SCH (07:40)
[2019-09-15] MEDS: morphine ER 15mg tablet PO SCH (07:40)
[2019-09-15] MEDS: docusate sod 100mg capsule PO SCH (07:40)
[2019-09-15] MEDS: magnesium hydroxide 30ml (MOM) UD suspension PO PRN (07:41)
[2019-09-15] MEDS: enoxaparin 40mg/0.4ml syringe SUBCUT SCH (07:41)
[2019-09-15] MEDS: K and/or MAG REPLACEMENT MC SCH (08:00)
[2019-09-15 10:00] VITALS: BP 150/83
[2019-09-15] MEDS: ondansetron/PF 4mg/2ml inj IV PRN (12:27)
--- NOTE | 2019-09-15 12:30 | NUR ---
[facility]
--- NOTE | 2019-09-15 12:57 | NUR ---
patient report called to ashley Barrientos eat with Katie
== END 2019-09-15 13:00 | disposition short-term general hospital (02) | DRG 492 ==
LOC: ER 10:44 → ED HOLD 12:54 → ORTHO 4S 14:30
PROVIDERS: ADMIT Family Medicine; ATTEND Family Medicine
PROC: 3E0T3BZ Introduction of Anesthetic Agent into Peripheral Nerves and Plexi, Percutaneous Approach (ICD-10-PCS; 2019-09-08)
PROC: 0QHG05Z Insertion of External Fixation Device into Right Tibia, Open Approach (ICD-10-PCS; principal; 2019-09-08 07:50)
DX: S82.141A Displaced bicondylar fracture of right tibia, initial encounter for closed fracture (principal); N17.0 Acute kidney failure with tubular necrosis; S82.424A Nondisplaced transverse fracture of shaft of right fibula, initial encounter for closed fracture; M25.561 Pain in right knee; D72.829 Elevated white blood cell count, unspecified; E87.6 Hypokalemia; W11.XXXA Fall on and from ladder, initial encounter; K21.9 Gastro-esophageal reflux disease without esophagitis; Y93.89 Activity, other specified; Y92.89 Other specified places as the place of occurrence of the external cause; Y99.8 Other external cause status; Z88.5 Allergy status to narcotic agent
CPT/HCPCS: 96374; 96375; 99285; Z7506; Z7508; 36415; 71045; 72170; 73552; 73560; 73590; 73700; 76000; 76700; 80053; 81003; 82948; 83735; 85025; 85610; 86885; 86900; 86901; 87081; 93005; 94760; 97110; 97116; 97162; 97530; A4618; A6446; A6449; A7000; G0378; J0690; J1100; J1170; J1650; J1885; J2060; J2250; J2270; J2405; J2765; J3010; J7030; J7120; Q0163